=== PATIENT | male | born 1990 | race Hispanic/Latino ===

== ENCOUNTER 2017-12-22 19:03 | Emergency (ER) | payer OTHER ==
[2017-12-22 19:38] VITALS: BP 145/98; PULSE 106; RESP 16; TEMP 99; O2SAT 100
[2017-12-22] MEDS ORDERED: COLCHICINE 0.6 MG CAPSULE PO STA (19:50)
--- NOTE | 2017-12-22 20:17 | ED PDOC ---
Lower Extremity Pain/Injury Time Seen by Provider: 12/22/17 19:48 Chief Complaint (Nursing): Lower Extremity Problem/Injury Chief Complaint (Provider): Lower Extremity Problem/Injury History Per: Patient Onset/Duration Of Symptoms: Days (x 4) Current Symptoms Are (Timing): Still Present Additional Complaint(s): 27 year old male with a history of gout in right ankle presents to the ED complaining of pain and swelling to right ankle. Patient reports his ankle feels warm and that these are usual symptoms of his gout. Otherwise: (-) fever, (-) chills, (-) trauma, (-) other injury. Past Medical History Reviewed: Historical Data, Nursing Documentation, Vital Signs Vital Signs: Last Vital Signs Temp 99.0 F 12/22/17 19:38 Pulse 106 H 12/22/17 19:38 Resp 16 12/22/17 19:38 BP 145/98 H 12/22/17 19:38 Pulse Ox 100 12/22/17 19:38 - Medical History PMH: No Chronic Diseases - Surgical History Surgical History: No Surg Hx - Family History Family History: States: Unknown Family Hx - Living Arrangements Living Arrangements: With Friends/Others - Social History Current smoker - smoking cessation education provided: No Ex-Smoker (has not smoked in the last 12 months): No Alcohol: None Drugs: Denies - Home Medications Home Medications: Ambulatory Orders Medication Instructions Recorded Colchicine 0.6 mg PO DAILY #20 tablet 12/22/17 Indomethacin [Indocin] 50 mg PO TID PRN #30 cap 12/22/17 Miscellaneous Medical Supply 1 each MC DAILY #1 each 12/22/17 [Tablet Cutter] - Allergies Allergies/Adverse Reactions: Allergies Allergy/AdvReac Type Severity Reaction Status Date / Time No Known Allergies Allergy Verified 12/22/17 19:36 Review of Systems ROS Statement: Except As Marked, All Systems Reviewed And Found Negative Musculoskeletal: Positive for: Foot Pain (right ankle pain and swelling) Physical Exam - Reviewed Nursing Documentation Reviewed: Yes Vital Signs Reviewed: Yes - Physical Exam Comments: GENERAL APPEARANCE: Patient is awake, alert, oriented x 3, in mild painful distress. SKIN: Warm, dry; (-) cyanosis. LOWER EXTREMITY: Right ankle: (+) swelling, (+) tenderness, (+) warm to touch, ( -) erythema. Right foot : (-) tenderness. FROM. CARDIOVASCULAR: (+) distal pulse. NEUROLOGIC: (+) distal sensation. - ECG O2 Sat by Pulse Oximetry: 100 (RA) Pulse Ox Interpretation: Normal Medical Decision Making Medical Decision Making: Time: 19:38 Impression: gout Initial Plan: --Colchicine 1.2 mg PO --Indocin 50 mg PO Patient will be given 1.2 mg Colchicine at this time and another dose of 0.6 mg will be administered at 21:00. On reevaluation, patient reports significant improvement. Patient laying in bed comfortably in no acute distress, feels comfortable going home. Given crutches. Advised to follow up with primary care physician in 1-2 days without fail. Advised to take medication as prescribed. Return to the emergency room at any time for any new or worsening symptoms. Patient states he fully agrees with and understands discharge instructions. States that he agrees with the plan and disposition. Verbalized and repeated discharge instructions and plan. I have given the patient opportunity to ask any additional questions. ---- Scribe Attestation: Documented by Juliet Miramontes, acting as a scribe for Capri Montenegro PA-C Provider Scribe Attestation: All medical record entries made by the Scribe were at my direction and personally dictated by me. I have reviewed the chart and agree that the record accurately reflects my personal performance of the history, physical exam, medical decision making, and the department course for this patient. I have also personally directed, reviewed, and agree with the discharge instructions and disposition. Disposition - Clinical Impression Clinical Impression: Gout - Patient ED Disposition Is Patient to be Admitted: No Counseled Patient/Family Regarding: Diagnosis, Need For Followup, Rx Given - Disposition Disposition: Routine/Home Disposition Time: 21:00 Condition: STABLE Additional Instructions: Thank you for letting us take care of you today. You were treated for gout. The emergency medical care you received today was directed at your acute symptoms. If you were prescribed any medication, please fill it and take as directed. It may take several days for your symptoms to resolve. Return to the Emergency Department if your symptoms worsen, do not improve, or if you have any other problems. Please contact your doctor in 2 days for re-evaluation and follow up. Bring any paperwork you were given at discharge with you along with any medications you are taking to your follow up visit. Our treatment cannot replace ongoing medical care by a primary care provider (PCP) outside of the emergency department. Thank you for allowing the [facility] team to be part of your care today. 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
[2017-12-22] MEDS ORDERED: COLCHICINE 0.6 MG CAPSULE PO ONE (21:00)
== END 2017-12-22 21:26 | disposition home or self-care (01) ==
LOC: H.ER 19:03
DX: M10.9 Gout, unspecified (principal)